=== PATIENT | female | born 1985 | race American Indian/Alaskan Native ===

== ENCOUNTER 2019-04-07 19:55 | Emergency (ER) | payer MEDICAID ==
--- NOTE | 2019-04-07 21:47 | Event Note ---
ED Screening Note ED Screening Note: pt states she hit her 4th toe on her right foot against the edge of a door she is walking with a limp PMHx HTN no allergies to meds pt is on depo never injured before This initial assessment/diagnostic orders/clinical plan/treatment(s) is/are subject to change based on patients health status, clinical progression and re- assessment by fellow clinical providers in the ED. Further treatment and workup at subsequent clinical providers discretion. Patient/guardian urged not to elope from the ED as their condition may be serious if not clinically assessed and managed. Initial orders include: XR right foot
--- NOTE | 2019-04-07 22:25 | XRay Report ---
RIGHT FOOT 3 VIEWS INDICATION: MAIN: right 4th toe injury; Hit right foot to wall. Nonlabored. Swollen. Hurts to bear weight. MAEW. No obvious deformities. . COMPARISON: No relevant prior imaging study available. FINDINGS: There is a minimally displaced vertically oriented intra-articular fracture at the base of the distal phalanx of the fourth toe seen best on the oblique view. There is no significant cortical offset at the articular surface. No additional fractures. IMPRESSION: 1. Fourth toe distal phalanx fracture as above. Signer Name: Sean Pete MD Signed: 04/07/2019 10:21 PM Workstation Name: [id number]
[2019-04-08] MEDS ORDERED: IBUPROFEN 600 MG TAB PO ONE (00:14)
[2019-04-08] MEDS ORDERED: ONDANSETRON 4 MG ODT TAB PO ONE (00:14)
[2019-04-08] MEDS ORDERED: oxyCODONE /ACETAMINOPHEN 5-325MG TAB PO ONE (00:14)
--- NOTE | 2019-04-08 00:45 | Emergency Department Report ---
ED Lower Extremity HPI - General Chief Complaint: Extremity Injury, Lower Stated Complaint: RT FOOT PAIN Time Seen by Provider: 04/07/19 21:45 Source: patient Mode of arrival: Ambulatory Limitations: No Limitations - History of Present Illness Initial Comments: Patient is a 34-year-old -[place] female with no past medical history who presents to the ED with complaint of acute onset persistent severe right foot pain and swelling after she accidentally kicked the wall of a house after slipping in the bathroom about 6 hours ago. Patient states that she is unable to bear weight on the right foot due to severe pain. Patient denies fall, head or neck injuries, back pain, nausea, vomiting, chest pain, shortness of breath, numbness and tingling or weakness of right leg or dizziness. MD Complaint: foot injury (right) -: Sudden, hour(s) (6) Injury: Foot: Right (pain, swelling), Toes: Right (pain, swelling) Type of Injury: blunt Place: home Severity: severe Severity scale (0 -10): 8 Improves With: nothing Worsens With: weight bearing, movement, palpation Context: direct blow (kicked a wall) Associated Symptoms: swelling, able to partially bear weight. denies: snap/pop sensation, numbness, tingling, unable to bear weight, ambulatory, other - Related Data Previous Rx's Medication Instructions Recorded Last Taken Type Acetaminophen/Codeine [Tylenol 1 tab PO Q6H PRN #12 tab 04/08/19 Unknown Rx /Codeine # 3 tab] Ibuprofen [Motrin] 800 mg PO Q8HR PRN #24 tablet 04/08/19 Unknown Rx Metaxalone [Skelaxin] 800 mg PO Q8H PRN #21 tablet 04/08/19 Unknown Rx Allergies Allergy/AdvReac Type Severity Reaction Status Date / Time No Known Allergies Allergy Verified 04/07/19 20:05 ED Review of Systems ROS: Stated complaint: RT FOOT PAIN Other details as noted in HPI Constitutional: denies: chills, fever Eyes: denies: eye pain, eye discharge, vision change ENT: denies: ear pain, throat pain Respiratory: denies: cough, shortness of breath, wheezing Cardiovascular: denies: chest pain, palpitations Endocrine: no symptoms reported Gastrointestinal: denies: abdominal pain, nausea, diarrhea Genitourinary: denies: urgency, dysuria, discharge Musculoskeletal: joint swelling (right foot), arthralgia (right foot and swelling). denies: back pain Skin: denies: rash, lesions Neurological: denies: headache, weakness, paresthesias Psychiatric: denies: anxiety, depression Hematological/Lymphatic: denies: easy bleeding, easy bruising ED Past Medical Hx - Past Medical History Previous Medical History?: No - Surgical History Past Surgical History?: No - Social History Smoking Status: Never Smoker Substance Use Type: None - Medications Home Medications: Home Medications Medication Instructions Recorded Confirmed Last Taken Type Acetaminophen/Codeine [Tylenol 1 tab PO Q6H PRN #12 tab 04/08/19 Unknown Rx /Codeine # 3 tab] Ibuprofen [Motrin] 800 mg PO Q8HR PRN #24 tablet 04/08/19 Unknown Rx Metaxalone [Skelaxin] 800 mg PO Q8H PRN #21 tablet 04/08/19 Unknown Rx ED Physical Exam - General Limitations: No Limitations General appearance: alert, in no apparent distress - Head Head exam: Present: atraumatic, normocephalic - Eye Eye exam: Present: normal appearance, PERRL, EOMI Pupils: Present: normal accommodation - ENT ENT exam: Present: normal exam, normal orophraynx, mucous membranes moist, TM's normal bilaterally, normal external ear exam - Neck Neck exam: Present: normal inspection, full ROM. Absent: tenderness - Respiratory Respiratory exam: Present: normal lung sounds bilaterally. Absent: respiratory distress, wheezes, chest wall tenderness, accessory muscle use, decreased breath sounds - Cardiovascular Cardiovascular Exam: Present: regular rate, normal rhythm, normal heart sounds. Absent: systolic murmur, diastolic murmur, rubs, gallop - GI/Abdominal GI/Abdominal exam: Present: soft, normal bowel sounds. Absent: tenderness, guarding, hyperactive bowel sounds - Extremities Exam Extremities exam: Present: normal inspection, tenderness (Palpable right foot tenderness with limited range of motion due to pain), normal capillary refill, joint swelling (Right foot swelling and tenderness). Absent: full ROM (Limited range of motion due to pain of right foot) - Back Exam Back exam: Present: normal inspection, full ROM. Absent: tenderness, CVA tenderness (R), CVA tenderness (L), muscle spasm, paraspinal tenderness, vertebral tenderness - Neurological Exam Neurological exam: Present: alert, oriented X3, CN II-XII intact, normal gait, reflexes normal - Psychiatric Psychiatric exam: Present: normal affect, normal mood - Skin Skin exam: Present: warm, dry, intact, normal color. Absent: rash ED Course Vital Signs 04/07/19 04/07/19 04/08/19 20:56 21:46 00:26 Temperature 99.5 F 99.5 F Pulse Rate 93 H 92 H Respiratory 18 18 20 Rate Blood Pressure 151/88 151/88 O2 Sat by Pulse 99 99 Oximetry 04/08/19 00:27 Temperature Pulse Rate Respiratory 18 Rate Blood Pressure O2 Sat by Pulse Oximetry ED Lower Extremity MDM - Radiology Data Radiology results: report reviewed, image reviewed Findings [facility] [address] [place] [address] XRay Report Signed Patient: ALFIE GLOVER MR#: [id number] : 1985 Acct:[id number] Age/Sex: 34 / F ADM Date: 04/07/19 Loc: ED Attending Dr: Ordering Physician: GRAHAM DORANTES Date of Service: 04/07/19 Procedure(s): XR foot 3+V RT Accession Number(s): [id number] cc: GRAHAM DORANTES Fluoro Time In Minutes: RIGHT FOOT 3 VIEWS INDICATION: MAIN: right 4th toe injury; Hit right foot to wall. Nonlabored. Swollen. Hurts to bear weight. MAEW. No obvious deformities. . COMPARISON: No relevant prior imaging study available. FINDINGS: There is a minimally displaced vertically oriented intra-articular fracture at the base of the distal phalanx of the fourth toe seen best on the oblique view. There is no significant cortical offset at the articular surface. No additional fractures. IMPRESSION: 1. Fourth toe distal phalanx fracture as above. Signer Name: Sean Pete MD Signed: 04/07/2019 10:21 PM Workstation Name: [id number] Transcribed By: DAVIN Dictated By: Sean Pete MD Electronically Authenticated By: Sean Pete MD Signed Date/Time: 04/07/192220 DD/ 19 TD/TT: - Medical Decision Making This is a 34-year-old female who presented to the ED with acute onset severe painful swollen right foot after she slipped and kicked the wall of her house when walking from the bathroom about 6 hours ago. In the ED, patient is alert and oriented x3 and is not in distress but appears to be in significant pain. Patient was treated for pain in the ED and the right foot x-ray shows a minimally displaced vertically oriented intra-articular fracture at the base of the distal phalanx of the fourth toe seen best on the oblique view. There is no significant cortical offset at the articular surface. No additional fractures. The patient right foot was splinted with a postop shoe and the fourth toe kieran taped. Patient was discharged home on pain medications and given a referral to the orthopedic surgeon on-call Dr. Quezada for follow-up. Patient was advised to contact Dr. Quezada's office first thing in the morning to schedule follow-up appointment. Patient was advised to return to the ED immediately if symptoms get worse. - Differential Diagnosis foot fracture; muscle strain; foot contusion; foot sprain Critical care attestation.: If time is entered above; I have spent that time in minutes in the direct care of this critically ill patient, excluding procedure time. ED Disposition Clinical Impression: Contusion of right foot including toes Qualifiers: Encounter type: initial encounter Qualified Code(s): S90.31XA - Contusion of right foot, initial encounter; S90.121A - Contusion of right lesser toe(s) with out damage to nail, initial encounter Nondisplaced fracture of lesser toe of left foot Qualifiers: Encounter type: initial encounter Fracture type: closed Phalanx: distal Qualified Code(s): S92.535A - Nondisplaced fracture of distal phalanx of left lesser toe(s), initial encounter for closed fracture Muscle strain of right foot Qualifiers: Encounter type: initial encounter Qualified Code(s): S96.911A - Strain of unspecified muscle and tendon at ankle and foot level, right foot, initial encounter Disposition: - TO HOME OR SELFCARE Is pt being admited?: No Does the pt Need Aspirin: No Condition: Stable Additional Instructions: The imaging report shows a nondisplaced distal right fourth toe fracture. 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 Quezada for further evaluation. Contact Dr. Quezada's office first thing in the morning to schedule a follow-up appointment. Return to the ED immediately if symptoms get worse. Prescriptions: Ibuprofen [Motrin] 800 mg PO Q8HR PRN #24 tablet PRN Reason: Pain , Severe (7-10) Metaxalone [Skelaxin] 800 mg PO Q8H PRN #21 tablet PRN Reason: Muscle Spasm Acetaminophen/Codeine [Tylenol /Codeine # 3 tab] 1 tab PO Q6H PRN #12 tab PRN Reason: Pain , Severe (7-10) Referrals: KELLY QUEZADA MD [Staff Physician] - 24 Hours Time of Disposition: 00:43 Print Language: MONGOLIAN
[2019-04-08 01:11] VITALS: BP 140/85
== END 2019-04-08 01:10 | disposition home or self-care (01) ==
LOC: ED 19:55
DX: S96.911A Strain of unspecified muscle and tendon at ankle and foot level, right foot, initial encounter (principal); S92.535A Nondisplaced fracture of distal phalanx of left lesser toe(s), initial encounter for closed fracture; Z79.899 Other long term (current) drug therapy; W18.09XA Striking against other object with subsequent fall, initial encounter; Y93.89 Activity, other specified; Y92.091 Bathroom in other non-institutional residence as the place of occurrence of the external cause; Y99.8 Other external cause status
CPT/HCPCS: Q0162

== ENCOUNTER 2020-05-24 20:18 | Emergency (ER) | payer MEDICAID ==
[2020-05-24] MEDS ORDERED: IBUPROFEN 600 MG TAB PO ONE (22:54)
[2020-05-24] MEDS ORDERED: ONDANSETRON 4 MG ODT TAB PO ONE ×2 (22:54→23:49)
[2020-05-24] MEDS ORDERED: HYDROcodone/ACETAMINOPHEN 7.5-325MG TAB PO ONE (22:54)
[2020-05-24 23:30] VITALS: BP 153/87
[2020-05-24] MEDS ORDERED: FAMOTIDINE 20 MG TAB PO ONE (23:49)
[2020-05-24] MEDS ORDERED: DICYCLOMINE 20 MG TAB PO ONE (23:49)
[2020-05-25] MEDS ORDERED: DICYCLOMINE 20 MG TAB PO ONE (02:30)
[2020-05-25] MEDS ORDERED: FAMOTIDINE 20 MG TAB PO ONE (02:30)
[2020-05-25] MEDS ORDERED: ONDANSETRON 4 MG ODT TAB PO ONE (03:00)
[2020-05-25 03:12] LABS: HCG Qualitative,Urine Negative (Negative)
--- NOTE | 2020-05-25 03:39 | Emergency Department Report ---
ED N/V/D HPI - General Chief complaint: Abdominal Pain Stated complaint: ABD PAIN Source: patient Mode of arrival: Ambulatory Limitations: No Limitations - History of Present Illness Initial comments: Patient is a 35-year-old -Marshallese female with a history of GERD and hypertension who presents to the ED with complaint of acute onset persistent intermittent nausea and vomiting with diffuse abdominal discomfort for the last 5 days, worse in the last 2 days. Patient states that she was initially evaluated by her primary care physician 2 days ago and was given some med ications to take but these have not helped. Patient states that the symptoms are been persistent especially in the last 2 days such that prior to arrival in the ED, she has had 2 take various [id number] medications with no relief. Patient states that no one else at home is at similar symptoms. Patient denies fever, chills, dizziness, syncope, dysuria, urinary frequency and urgency, fever, chills, vaginal bleeding, vaginal discharge or low back pain. MD complaint: nausea, vomiting, abdominal pain -: Sudden, days(s) (5) Description of Vomiting: food contents, watery Associated Abdominal Pain: Yes (diffuse) Location: diffuse Radiation: none Severity: mild Pain Scale: 1 Quality: dull Consistency: intermittent Improves with: none Worsens with: vomiting Context: possible food poisoning, other (GERD) Associated Symptoms: denies other symptoms, loss of appetite, malaise, nausea/vomiting, weakness. denies: myalgias, chest pain, cough, diaphoresis, fever/chills, headaches, rash, dysuria, shortness of breath, syncope - Related Data Previous Rx's Medication Instructions Recorded Last Taken Type Acetaminophen/Codeine [Tylenol 1 tab PO Q6H PRN #12 tab 04/08/19 Unknown Rx /Codeine # 3 tab] Ibuprofen [Motrin] 800 mg PO Q8HR PRN #24 tablet 04/08/19 Unknown Rx Metaxalone [Skelaxin] 800 mg PO Q8H PRN #21 tablet 04/08/19 Unknown Rx Dicyclomine [Bentyl] 20 mg PO Q6H PRN #24 tablet 05/25/20 Unknown Rx Famotidine [Pepcid] 20 mg PO BID #60 tablet 05/25/20 Unknown Rx Ondansetron [Zofran Odt] 4 mg PO Q6HR PRN #20 tab.rapdis 04/20/21 Unknown Rx Allergies Allergy/AdvReac Type Severity Reaction Status Date / Time No Known Allergies Allergy Verified 04/07/19 20:05 ED Review of Systems ROS: Stated complaint: ABD PAIN Other details as noted in HPI Constitutional: denies: chills, fever Eyes: denies: eye pain, eye discharge, vision change ENT: denies: ear pain, throat pain Respiratory: denies: cough, shortness of breath, wheezing Cardiovascular: denies: chest pain, palpitations Endocrine: no symptoms reported Gastrointestinal: abdominal pain, nausea, vomiting. denies: diarrhea Genitourinary: denies: urgency, dysuria, discharge Musculoskeletal: denies: back pain, joint swelling, arthralgia Skin: denies: rash, lesions Neurological: denies: headache, weakness, paresthesias Psychiatric: denies: anxiety, depression Hematological/Lymphatic: denies: easy bleeding, easy bruising ED Past Medical Hx - Past Medical History Previous Medical History?: Yes Hx Hypertension: Yes Hx GERD: Yes - Surgical History Additional Surgical History: c-sections x 3, ectopic - Social History Smoking Status: Never Smoker - Medications Home Medications: Home Medications Medication Instructions Recorded Confirmed Last Taken Type Acetaminophen/Codeine [Tylenol 1 tab PO Q6H PRN #12 tab 04/08/19 Unknown Rx /Codeine # 3 tab] Ibuprofen [Motrin] 800 mg PO Q8HR PRN #24 tablet 04/08/19 Unknown Rx Metaxalone [Skelaxin] 800 mg PO Q8H PRN #21 tablet 04/08/19 Unknown Rx Dicyclomine [Bentyl] 20 mg PO Q6H PRN #24 tablet 05/25/20 Unknown Rx Famotidine [Pepcid] 20 mg PO BID #60 tablet 05/25/20 Unknown Rx Ondansetron [Zofran Odt] 4 mg PO Q6HR PRN #20 tab.rapdis 05/25/20 Unknown Rx ED Physical Exam - General Limitations: No Limitations General appearance: alert, in no apparent distress - Head Head exam: Present: atraumatic, normocephalic, normal inspection - Eye Eye exam: Present: normal appearance, PERRL, EOMI Pupils: Present: normal accommodation - ENT ENT exam: Present: normal exam, normal orophraynx, mucous membranes moist, TM's normal bilaterally, normal external ear exam - Neck Neck exam: Present: normal inspection, full ROM - Respiratory Respiratory exam: Present: normal lung sounds bilaterally. Absent: respiratory distress, wheezes, rales, rhonchi, chest wall tenderness, accessory muscle use, decreased breath sounds, prolonged expiratory - Cardiovascular Cardiovascular Exam: Present: regular rate, normal rhythm, normal heart sounds. Absent: systolic murmur, diastolic murmur, rubs, gallop - GI/Abdominal GI/Abdominal exam: Present: soft, normal bowel sounds. Absent: tenderness, guarding, rebound, hyperactive bowel sounds, organomegaly - Extremities Exam Extremities exam: Present: normal inspection, full ROM, normal capillary refill - Back Exam Back exam: Present: normal inspection, full ROM. Absent: tenderness, CVA tenderness (R), CVA tenderness (L), muscle spasm, paraspinal tenderness - Neurological Exam Neurological exam: Present: alert, oriented X3, CN II-XII intact, normal gait, reflexes normal - Psychiatric Psychiatric exam: Present: normal affect, normal mood - Skin Skin exam: Present: warm, dry, intact, normal color. Absent: rash ED Course Vital Signs 05/24/20 23:25 Temperature 97.8 F Pulse Rate 77 Respiratory 18 Rate Blood Pressure 153/87 O2 Sat by Pulse 100 Oximetry ED Medical Decision Making - Medical Decision Making This is a 35-year-old -Marshallese female with a history of GERD and hypertension who presents to the ED with complaint of acute onset persistent intermittent nausea and vomiting with diffuse abdominal discomfort for the last 5 days, worse in the last 2 days. Patient states that she was initially evaluated by her primary care physician 2 days ago and was given some medications to take but these have not helped. Patient states that the symptoms are been persistent especially in the last 2 days such that prior to arrival in the ED, she has had 2 take various [id number]-[id number] medications with no relief. Patient states that no one else at home is at similar symptoms. In the ED, patient is alert and oriented x3 and is not in any distress. Lab test results were reviewed and are all nonactionable. Based on the patient's history and physical exam findings, patient was discharged home on medications and advised to follow-up with her primary care physician in 5 to 7 days for reevaluation or return to the ED immediately if symptoms get worse. - Differential Diagnosis GERD; gastroenteritis; UTI; gastritis; Critical care attestation.: If time is entered above; I have spent that time in minutes in the direct care of this critically ill patient, excluding procedure time. ED Disposition Clinical Impression: Nausea and vomiting in adult patient GERD (gastroesophageal reflux disease) Qualifiers: Esophagitis presence: esophagitis presence not specified Qualified Code(s): K21.9 - Gastro-esophageal reflux disease without esophagitis Disposition: TO HOME OR SELFCARE Is pt being admited?: No Does the pt Need Aspirin: No Condition: Stable Instructions: Nausea and Vomiting, Adult, [id number], Gastroesophageal Reflux Disease, Adult, [id number], Abdominal Pain (ED) Additional Instructions: Lab test results were reviewed and are all nonactionable. Therefore take medication with food, drink plenty of fluids and follow-up with your primary care physician in 5 to 7 days for reevaluation. Return to the ED immediately if symptoms get worse. Prescriptions: Dicyclomine [Bentyl] 20 mg PO Q6H PRN #24 tablet PRN Reason: ABDOMINAL PAIN Famotidine [Pepcid] 20 mg PO BID #60 tablet Ondansetron [Zofran Odt] 4 mg PO Q6HR PRN #20 tab.rapdis PRN Reason: Nausea And Vomiting Referrals: [facility] [Provider Group] - 3-5 Days Time of Disposition: 03:37 Print Language: MONTENEGRIN
[2020-05-25 03:47] LABS: Blood,Urine Negative (Negative); Color,Urine Yellow (Yellow); PH,Urine 5.5 (5.0-7.0)
[2020-05-25 03:48] LABS: Ictotest,Urine Negative (Negative)
== END 2020-05-25 04:00 | disposition home or self-care (01) ==
LOC: ED 20:18
DX: K21.9 Gastro-esophageal reflux disease without esophagitis (principal); R11.2 Nausea with vomiting, unspecified; I10 Essential (primary) hypertension; Z98.890 Other specified postprocedural states; Z79.1 Long term (current) use of non-steroidal anti-inflammatories (NSAID); Z79.899 Other long term (current) drug therapy
CPT/HCPCS: 81001; 81025; Q0162

== ENCOUNTER 2020-07-22 17:22 | Emergency (ER) | payer MEDICAID ==
[2020-07-22 17:33] VITALS: BP 149/93
[2020-07-22 18:51] LABS: Basophils # (Auto) 0.1 K/mm3 (0.0-0.1); Basophils % (Auto) 1.4 % (0.0-1.8); Eosinophils # (Auto) 0.5 K/mm3 (0.0-0.4); Hematocrit 34.8 % (30.3-42.9); Hemoglobin 11.7 gm/dl (10.1-14.3); Lymphocytes # (Auto) 2.1 K/mm3 (1.2-5.4); Lymphocytes % (Auto) 42.6 % (13.4-35.0); Mean Corpuscular HGB Conc 34 % (30-34); Mean Corpuscular Volume 92 fl (79-97); Monocytes # (Auto) 0.4 K/mm3 (0.0-0.8); Monocytes % (Auto) 7.3 % (0.0-7.3); Platelet Count 306 K/mm3 (140-440); Red Blood Count 3.77 M/mm3 (3.65-5.03); Red Cell Distribution Width 13.1 % (13.2-15.2)
--- NOTE | 2020-07-22 18:55 | Emergency Department Report ---
ED General Adult HPI - General Chief complaint: High BP Stated complaint: HEADACHE/PRESSURE IN EYES Source: patient Mode of arrival: Ambulatory Limitations: No Limitations - History of Present Illness Initial comments: Patient is a 35-year-old -German female with a history of GERD and hypertension and who takes labetalol 100 mg daily presents to the ED with acute onset persistent elevated blood pressure and headache for the last 2 weeks intermittently. Patient also complains of mild left-sided chest wall discomfort which she initially attributed to suspected complications from her chronic GERD. Patient states that she has been taking Tylenol for headache but that this has not helped. 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 Patient states that this medication has not helped control her blood pressure like amlodipine that she used to take. Patient denies dizziness, syncope, nausea, vomiting, shortness of breath, chest pain, abdominal pain, change in vision, palpitation, lightheadedness, hemoptysis or cough, neck pain or back pain. MD Complaint: headache, elevated BP, left-sided chest discomfort -: Sudden, week(s) (2) Location: head, chest Radiation: non-radiation Severity scale (0 -10): 1 Quality: aching, dull Consistency: intermittent Improves with: none Worsens with: none Associated Symptoms: denies other symptoms, chest pain (left-sided chest discomfort), headaches. denies: confusion, cough, diaphoresis, fever/chills, loss of appetite, nausea/vomiting, rash, seizure, shortness of breath, syncope, weakness Treatments Prior to Arrival: NSAID - Related Data Previous Rx's Medication Instructions Recorded Last Taken Type Acetaminophen/Codeine [Tylenol 1 tab PO Q6H PRN #12 tab 04/08/19 Unknown Rx /Codeine # 3 tab] Ibuprofen [Motrin] 800 mg PO Q8HR PRN #24 tablet 04/08/19 Unknown Rx Metaxalone [Skelaxin] 800 mg PO Q8H PRN #21 tablet 04/08/19 Unknown Rx Dicyclomine [Bentyl] 20 mg PO Q6H PRN #24 tablet 05/25/20 Unknown Rx Famotidine [Pepcid] 20 mg PO BID #60 tablet 05/25/20 Unknown Rx Ondansetron [Zofran Odt] 4 mg PO Q6HR PRN #20 tab.rapdis 05/25/20 Unknown Rx Butalb/Acetamin/Caff 50-325-40 1 - 2 tab PO Q6HR PRN #15 tab 07/22/20 Unknown Rx [Fioricet 50-325-40] Ibuprofen [Motrin] 600 mg PO Q8H PRN #30 tablet 07/22/20 Unknown Rx amLODIPine 10 mg PO DAILY #30 tab 07/22/20 Unknown Rx Allergies Allergy/AdvReac Type Severity Reaction Status Date / Time No Known Allergies Allergy Verified 07/22/20 17:28 ED Review of Systems ROS: Stated complaint: HEADACHE/PRESSURE IN EYES Other details as noted in HPI Constitutional: malaise, other (elevated BP). denies: chills, fever Eyes: denies: eye pain, eye discharge, vision change ENT: denies: ear pain, throat pain Respiratory: denies: cough, shortness of breath, wheezing Cardiovascular: chest pain (left-sided chest discomfort). denies: palpitations, dyspnea on exertion Endocrine: no symptoms reported Gastrointestinal: denies: abdominal pain, nausea, vomiting, diarrhea Genitourinary: denies: urgency, dysuria, discharge Musculoskeletal: denies: back pain, joint swelling, arthralgia Skin: denies: rash, lesions Neurological: headache. denies: weakness, paresthesias Psychiatric: denies: anxiety, depression Hematological/Lymphatic: denies: easy bleeding, easy bruising ED Past Medical Hx - Past Medical History Hx Hypertension: Yes Hx GERD: Yes - Surgical History Additional Surgical History: c-sections x 3, ectopic - Social History Smoking Status: Never Smoker Substance Use Type: None - Medications Home Medications: Home Medications Medication Instructions Recorded Confirmed Last Taken Type Acetaminophen/Codeine [Tylenol 1 tab PO Q6H PRN #12 tab 04/08/19 Unknown Rx /Codeine # 3 tab] Ibuprofen [Motrin] 800 mg PO Q8HR PRN #24 tablet 04/08/19 Unknown Rx Metaxalone [Skelaxin] 800 mg PO Q8H PRN #21 tablet 04/08/19 Unknown Rx Dicyclomine [Bentyl] 20 mg PO Q6H PRN #24 tablet 05/25/20 Unknown Rx Famotidine [Pepcid] 20 mg PO BID #60 tablet 05/25/20 Unknown Rx Ondansetron [Zofran Odt] 4 mg PO Q6HR PRN #20 tab.rapdis 05/25/20 Unknown Rx Butalb/Acetamin/Caff 50-325-40 1 - 2 tab PO Q6HR PRN #15 tab 07/22/20 Unknown Rx [Fioricet 50-325-40] Ibuprofen [Motrin] 600 mg PO Q8H PRN #30 tablet 07/22/20 Unknown Rx amLODIPine 10 mg PO DAILY #30 tab 07/22/20 Unknown Rx ED Physical Exam - General Limitations: No Limitations General appearance: alert, in no apparent distress - Head Head exam: Present: atraumatic, normocephalic, normal inspection - Eye Eye exam: Present: normal appearance, PERRL, EOMI Pupils: Present: normal accommodation - ENT ENT exam: Present: normal exam, normal orophraynx, mucous membranes moist, TM's normal bilaterally, normal external ear exam - Neck Neck exam: Present: normal inspection, full ROM - Respiratory Respiratory exam: Present: normal lung sounds bilaterally. Absent: respiratory distress, wheezes, rales, rhonchi, stridor, chest wall tenderness, accessory muscle use, decreased breath sounds, prolonged expiratory - Cardiovascular Cardiovascular Exam: Present: regular rate, normal rhythm. Absent: systolic murmur, diastolic murmur, rubs, gallop - GI/Abdominal GI/Abdominal exam: Present: soft, normal bowel sounds. Absent: distended, tenderness, guarding, rebound, hyperactive bowel sounds, hypoactive bowel sounds, organomegaly - Extremities Exam Extremities exam: Present: normal inspection, full ROM, normal capillary refill - Back Exam Back exam: Present: normal inspection, full ROM. Absent: tenderness, CVA tenderness (R), CVA tenderness (L), muscle spasm, paraspinal tenderness, vertebral tenderness - Neurological Exam Neurological exam: Present: alert, oriented X3, CN II-XII intact, normal gait, reflexes normal - Psychiatric Psychiatric exam: Present: normal affect, normal mood - Skin Skin exam: Present: warm, dry, intact, normal color. Absent: rash ED Course Vital Signs 07/22/20 17:30 Temperature 98.5 F Pulse Rate 70 Respiratory 20 Rate Blood Pressure 149/93 O2 Sat by Pulse 100 Oximetry ED Medical Decision Making - Lab Data Result diagrams: 07/22/20 18:41 07/22/20 18:41 - EKG Data EKG shows normal: sinus rhythm Rate: normal - EKG Data Interpretation: normal EKG - Radiology Data Radiology results: report reviewed, image reviewed [facility] [address] [place] [address] XRay Report Signed Patient: ALFIE GLOVER MR#: [id number] : 1985 Acct:[id number] Age/Sex: 35 / F ADM Date: 07/22/20 Loc: ED Attending Dr: Ordering Physician: GRAHAM CAPELLAN Date of Service: 07/22/20 Procedure(s): XR chest 1V ap Accession Number(s): [id number] cc: GRAHAM CAPELLAN Fluoro Time In Minutes: CHEST 1 VIEW 07/22/2020 6:00 PM INDICATION / CLINICAL INFORMATION: Chest pain. High blood pressure and headache on and off for several weeks. COMPARISON: None available. FINDINGS: SUPPORT DEVICES: None. HEART / MEDIASTINUM: The heart size and pulmonary vasculature are normal. The aorta is normal in caliber. LUNGS / PLEURA: No significant pulmonary or pleural abnormality. No pneumothorax. ADDITIONAL FINDINGS: No significant additional findings. IMPRESSION: No acute findings. Signer Name: oJhn Duron MD Signed: 07/22/2020 7:03 PM Workstation Name: [id number] Transcribed By: RT Dictated By: John Duron MD Electronically Authenticated By: John Duron MD Signed Date/Time: 07/22/201902 DD/ 01 TD/TT: - Medical Decision Making This is a 35-year-old -German female with a history of GERD and hypertension and who takes labetalol 100 mg daily presents to the ED with acute onset persistent elevated blood pressure and headache for the last 2 weeks intermittently. Patient also complains of mild left-sided chest wall discomfort which she initially attributed to suspected complications from her chronic GERD. Patient states that she has been taking Tylenol for headache but that this has not helped. 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 Patient states that this medication has not helped control her blood pressure like amlodipine that she used to take. In the ED, patient is alert and oriented x3 and is not in any distress. Lab test results were reviewed and are all nonactionable. Chest x-ray shows no acute cardiopulmonary abnormalities or pneu monitis. Patient was treated for pain in the ED and on reevaluation, patient's headache resolved medications. Patient's heart score is 1 and patient is negative per Wells criteria. Patient was discharged home on pain medications and a new prescription of amlodipine and was advised to follow-up with her primary care physician in 5 to 7 days for reevaluation. Patient was also advised to stop taking labetalol and referred to her previous medication amlodipine. Patient is advised return to the ED immediately if symptoms get worse. - Differential Diagnosis Tension headache; GERD; ACS; Pneumonia; Critical care attestation.: If time is entered above; I have spent that time in minutes in the direct care of this critically ill patient, excluding procedure time. ED Disposition Clinical Impression: Acute nonspecific chest pain with low risk of coronary artery disease, Uncontrolled hypertension, stage 1 Tension-type headache Qualifiers: Headache chronicity pattern: acute headache Intractability: not intractable Qualified Code(s): G44.209 - Tension-type headache, unspecified, not intractable Disposition: DC-01 TO HOME OR SELFCARE Is pt being admited?: No Does the pt Need Aspirin: No Condition: Stable Instructions: Tension Headache, Adult, [id number], Nonspecific Chest Pain, Adult, [id number], Hypertension, Adult, [id number], Chest Pain (ED), Hypertension (ED) Additional Instructions: All lab test results were reviewed and are all nonactionable. Chest x-ray showed no acute cardiopulmonary abnormalities or pneumonitis. Therefore take medication with food, drink plenty of fluids, follow-up with your primary care physician in 5 to 7 days for reevaluation. Return to the ED immediately if symptoms get worse. Prescriptions: amLODIPine 10 mg PO DAILY #30 tab Butalb/Acetamin/Caff 50-325-40 [Fioricet 50-325-40] 1 - 2 tab PO Q6HR PRN #15 tab PRN Reason: Headache Ibuprofen [Motrin] 600 mg PO Q8H PRN #30 tablet PRN Reason: Pain Referrals: OLEG GASPAR MD [Staff Physician] - 3-5 Days Time of Disposition: 18:55 Print Language: FAROESE
--- NOTE | 2020-07-22 19:07 | XRay Report ---
CHEST 1 VIEW 07/22/2020 6:00 PM INDICATION / CLINICAL INFORMATION: Chest pain. High blood pressure and headache on and off for severa l weeks. COMPARISON: None available. FINDINGS: SUPPORT DEVICES: None. HEART / MEDIASTINUM: The heart size and pulmonary vasculature are normal. The aorta is normal in kadei sail[place]. LUNGS / PLEURA: No significant pulmonary or pleural abnormality. No pneumothorax. ADDITIONAL FINDINGS: No significant additional findings. IMPRESSION: No acute findings. Signer Name: John Duron MD Signed: 07/22/2020 7:03 PM Workstation Name: [id number]
[2020-07-22 19:54] LABS: Alanine Aminotransferase 9 units/L (7-56); Albumin 4.7 g/dL (3.9-5); Blood Urea Nitrogen 12 mg/dL (7-17); Calcium 9.5 mg/dL (8.4-10.2); Hemolysis Index 5
[2020-07-22 19:55] LABS: BUN/Creatinine Ratio 20
[2020-07-22] MEDS ORDERED: amLODIPine 5 MG TAB PO ONE (20:25)
[2020-07-22] MEDS ORDERED: KETOROLAC 30 MG/1 ML INJ IM ONE (20:25)
[2020-07-22] MEDS ORDERED: FAMOTIDINE 20 MG TAB PO ONE (20:25)
[2020-07-22] MEDS ORDERED: BUTALB/ACETAMINOPHEN/CAFFEINE TAB PO ONE (20:25)
--- NOTE | 2020-07-23 19:42 | Electrocardiograph Report ---
[facility] Test Date: 2020-07-22 Test Time: 17:36:29 Pat Name: ALFIE GLOVER Department: Room: Gender: F Golf Caddy: DONALD TREADWELLB: 1985 Requested By: ZEE RIOJAS III Order Number: [id number] Reading MD: Wilman Fontanez Measurements Intervals [place] Rate: 64 P: 48 WI: 186 QRS: 48 QRSD: 89 T: 18 QT: 390 QTc: 403 Interpretive Statements Sinus rhythm No previous ECG available for comparison Electronically Signed On 07-23-2020 19:42:01 EDT by Wilman Fontanez
== END 2020-07-22 21:00 | disposition home or self-care (01) ==
LOC: ED 17:22
DX: G44.209 Tension-type headache, unspecified, not intractable (principal); R07.89 Other chest pain; I10 Essential (primary) hypertension; K21.9 Gastro-esophageal reflux disease without esophagitis; Z98.890 Other specified postprocedural states; Z79.899 Other long term (current) drug therapy
CPT/HCPCS: 36415; 71045; 80053; 84484; 85025; 93005

== ENCOUNTER 2020-07-24 03:00 | Emergency (ER) | payer MEDICAID ==
[2020-07-24] MEDS ORDERED: ACETAMINOPHEN 325 MG TAB ONE (05:06)
--- NOTE | 2020-07-24 05:45 | XRay Report ---
Right forearm 4 views INDICATION: Pain FINDINGS: Radius and ulna appear intact. No soft tissue abnormality is seen. Elbow appears normal. IMPRESSION: No acute findings. Signer Name: Sami Mcconnell MD Signed: 07/24/2020 5:40 AM Workstation Name: [id number]
[2020-07-24] MEDS ORDERED: HYDROcodone/ACETAMINOPHEN 7.5-325MG TAB PO ONE (06:16)
[2020-07-24 06:41] VITALS: BP 117/80
--- NOTE | 2020-07-24 07:30 | XRay Report ---
Right hand 2 views INDICATION: Tenderness FINDINGS: MCP joints and IP joints appear normal. No acute fracture is seen. No focal soft tissue abn ormality. IMPRESSION: No acute findings. Signer Name: Sami Mcconnell MD Signed: 07/24/2020 7:26 AM Workstation Name: [id number]
--- NOTE | 2020-07-24 07:50 | Emergency Department Report ---
ED General Adult HPI - General Chief complaint: Extremity Injury, Upper Stated complaint: RT HAND INJURY Time Seen by Provider: 07/24/20 07:36 Source: patient Mode of arrival: Ambulatory Limitations: No Limitations - History of Present Illness Initial comments: 35-year-old [id number] female patient presents to the emergency department with complaints of right hand pain starting yesterday. Patient states she was [place] a bowling [place] when she accidentally twisted her hand while attempting to grab the bowling ball. No history of prior injuries to the right hand. No medications prior to arrival. Denies neck pain, shoulder pain, elbow pain, wrist pain, numbness. Denies all other complaints at this time. Severity scale (0 -10): 7 - Related Data Previous Rx's Medication Instructions Recorded Last Taken Type Acetaminophen/Codeine [Tylenol 1 tab PO Q6H PRN #12 tab 04/08/19 Unknown Rx /Codeine # 3 tab] Ibuprofen [Motrin] 800 mg PO Q8HR PRN #24 tablet 04/08/19 Unknown Rx Metaxalone [Skelaxin] 800 mg PO Q8H PRN #21 tablet 04/08/19 Unknown Rx Dicyclomine [Bentyl] 20 mg PO Q6H PRN #24 tablet 05/25/20 Unknown Rx Famotidine [Pepcid] 20 mg PO BID #60 tablet 05/25/20 Unknown Rx Ondansetron [Zofran Odt] 4 mg PO Q6HR PRN #20 tab.rapdis 05/25/20 Unknown Rx Butalb/Acetamin/Caff 50-325-40 1 - 2 tab PO Q6HR PRN #15 tab 07/22/20 Unknown Rx [Fioricet 50-325-40] Ibuprofen [Motrin] 600 mg PO Q8H PRN #30 tablet 07/22/20 Unknown Rx amLODIPine 10 mg PO DAILY #30 tab 07/22/20 Unknown Rx Naproxen 500 mg PO BID #20 tablet 07/24/20 Unknown Rx Allergies Allergy/AdvReac Type Severity Reaction Status Date / Time No Known Allergies Allergy Verified 07/22/20 17:28 ED Review of Systems ROS: Stated complaint: RT HAND INJURY Other details as noted in HPI Other: CARDIOVASCULAR: Negative for chest pain. PULMONARY: Negative for dyspnea. GASTROINTESTINAL: Negative for abdominal pain. MUSCULOSKELETAL: Positive for hand pain. NEUROLOGICAL: Negative for headache. INTEGUMENTARY: Negative for ecchymosis. ED Past Medical Hx - Past Medical History Previous Medical History?: Yes Hx Hypertension: Yes Hx GERD: Yes - Surgical History Past Surgical History?: Yes Additional Surgical History: c-sections x 3, ectopic - Social History Smoking Status: Never Smoker Substance Use Type: None - Medications Home Medications: Home Medications Medication Instructions Recorded Confirmed Last Taken Type Acetaminophen/Codeine [Tylenol 1 tab PO Q6H PRN #12 tab 04/08/19 Unknown Rx /Codeine # 3 tab] Ibuprofen [Motrin] 800 mg PO Q8HR PRN #24 tablet 04/08/19 Unknown Rx Metaxalone [Skelaxin] 800 mg PO Q8H PRN #21 tablet 04/08/19 Unknown Rx Dicyclomine [Bentyl] 20 mg PO Q6H PRN #24 tablet 05/25/20 Unknown Rx Famotidine [Pepcid] 20 mg PO BID #60 tablet 05/25/20 Unknown Rx Ondansetron [Zofran Odt] 4 mg PO Q6HR PRN #20 tab.rapdis 05/25/20 Unknown Rx Butalb/Acetamin/Caff 50-325-40 1 - 2 tab PO Q6HR PRN #15 tab 07/22/20 Unknown Rx [Fioricet 50-325-40] Ibuprofen [Motrin] 600 mg PO Q8H PRN #30 tablet 07/22/20 Unknown Rx amLODIPine 10 mg PO DAILY #30 tab 07/22/20 Unknown Rx Naproxen 500 mg PO BID #20 tablet 07/24/20 Unknown Rx ED Physical Exam - General Limitations: No Limitations - Other Other exam information: General: Awake, appropriately interactive, no acute distress. Neck: Supple. Full range of motion intact. Cardiovascular: Normal peripheral perfusion. Pulmonary: No respiratory distress. Patient is speaking normally without use of accessory muscles. Skin: No apparent rashes or lesions. Neurological: No facial asymmetry. Speech is clear. Follows commands. Patient is alert and oriented. Musculoskeletal: Tenderness to palpation throughout the radial aspect of the right hand including the anatomical snuffbox with overlying erythema and minimal soft tissue swelling. Range of motion painful but intact. Strong radial pulse. No wrist tenderness. Distal neurovascular and motor/sensory function intact. Psych: Cooperative. Appropriate mood and affect. ED Course Vital Signs 07/24/20 07/24/20 03:12 06:40 Temperature 98.0 F Pulse Rate 94 H 78 Respiratory 18 18 Rate Blood Pressure 137/95 Blood Pressure 117/80 [Left] O2 Sat by Pulse 99 100 Oximetry ED Medical Decision Making - Medical Decision Making Differential diagnosis including but not limited to: sprain, strain, fracture, contusion, dislocation On reevaluation, patient is stable. Repeat neurovascular exam remains intact. X-rays ordered by global commodity manager within normal limits however patient will be placed in a splint as a precaution due to tenderness along the distribution of the anatomical snuffbox. Prescribed appropriate analgesics and referred to orthopedics for close outpatient follow-up. Patient expressed understanding and is agreeable to plan of care. RICE precautions discussed. Strict return precautions provided. Repeat exam is unremarkable and benign. History, exam, diagnostic testing, and current condition do not suggest worrisome pathology to warrant further testing, continued ED treatment, admission, or surgical evaluation at this point. Given the low probability of a significant medical illness, it would be more likely to result in harm than benefit to perform further testing at this stage. Discussed findings, presumptive diagnosis, need for follow-up and specific signs/symptoms that should prompt immediate return to the emergency department. Instructions were explained in detail to the patient in addition to giving written discharge information. Patient expressed understanding and was given the opportunity to ask questions, all of which were satisfactorily answered prior to discharge home. Critical care attestation.: If time is entered above; I have spent that time in minutes in the direct care of this critically ill patient, excluding procedure time. ED Disposition Clinical Impression: Injury of right hand Qualifiers: Encounter type: initial encounter Qualified Code(s): S69.91XA - Unspecified injury of right wrist, hand and finger(s), initial encounter Disposition: DC-01 TO HOME OR SELFCARE Is pt being admited?: No Does the pt Need Aspirin: No Condition: Stable Instructions: Scaphoid Fracture Additional Instructions: Take Tylenol every 4 hours as needed for pain. Take Naproxen with food twice daily as needed for pain. Wear splint as directed. Keep right hand elevated as often as possible to reduce swelling. Follow up with Dr. Quezada, orthopedics, this week. Call Sunday to schedule an appointment. Return to the emergency department immediately for new or worsening symptoms. Prescriptions: Naproxen 500 mg PO BID #20 tablet Referrals: KELLY QUEZADA MD [Staff Physician] - 3-5 Days Time of Disposition: 07:55
== END 2020-07-24 08:35 | disposition home or self-care (01) ==
LOC: ED 03:00
DX: S69.91XA Unspecified injury of right wrist, hand and finger(s), initial encounter (principal); I10 Essential (primary) hypertension; K21.9 Gastro-esophageal reflux disease without esophagitis; Z98.890 Other specified postprocedural states; Z79.1 Long term (current) use of non-steroidal anti-inflammatories (NSAID); Z79.899 Other long term (current) drug therapy; X50.1XXA Overexertion from prolonged static or awkward postures, initial encounter; Y93.89 Activity, other specified; Y92.89 Other specified places as the place of occurrence of the external cause; Y99.8 Other external cause status

== ENCOUNTER 2020-12-07 08:15 | Day surgery (SDC) | payer MEDICAID ==
[2020-12-01 10:17] LABS: Hematocrit 37.7 % (30.3-42.9); Hemoglobin 12.1 gm/dl (10.1-14.3); Mean Corpuscular HGB Conc 32 % (30-34); Mean Corpuscular Volume 90 fl (79-97); Platelet Count 331 K/mm3 (140-440); Red Blood Count 4.17 M/mm3 (3.65-5.03); Red Cell Distribution Width 14.6 % (13.2-15.2)
[2020-12-01 10:50] LABS: Blood Urea Nitrogen 15 mg/dL (7-17); Calcium 9.3 mg/dL (8.4-10.2); Hemolysis Index 5
[2020-12-01 11:07] LABS: BUN/Creatinine Ratio 30
[~2020-12-07 08:15] MED LIST: BUPIVACAINE/PF (0.25%) 2.5 MG/ML 30 ML VIAL INFILTRATI ONE; LIDOCAINE (1%) 10 MG/1 ML VIAL 20 ML MDV ONE
--- NOTE | 2020-12-07 08:38 | Anesthesia Day of Surgery ---
Anesthesia Day of Surgery - Day of Surgery Patient Examined: Yes Patient H&P Reviewed: Yes Patient is NPO: Yes
--- NOTE | 2020-12-07 08:39 | Anesthesia Consultation ---
Anesthesia Consult and Med Hx Date of service: 12/07/20 - Airway Anesthetic Teeth Evaluation: Chipped ROM Head & Neck: Adequate Mental/Hyoid Distance: Adequate Mallampati Class: Class II Intubation Access Assessment: Good - Pre-Operative Health Status ASA Pre-Surgery Classification: ASA2 Proposed Anesthetic Plan: General - Pulmonary Hx Smoking: No Hx Sleep Apnea: No (ISA PRE SCREEN LOW RISK.) - Cardiovascular System Hx Hypertension: Yes (SINCE AGE 16 YRS OLD) - Gastrointestinal Hx Gastroesophageal Reflux Disease: Yes (Hiatal hernia) - Hematic Hx Anemia: Yes (WITH PREG- NOT RECENT) Hx Sickle Cell Disease: No - Other Systems Hx Cancer: No Hx Obesity: No
[2020-12-07] MEDS ORDERED: CELECOXIB 200 MG CAP PO NR (09:00)
[2020-12-07] MEDS ORDERED: ACETAMINOPHEN 500 MG TAB PO SCH (09:00)
[2020-12-07] MEDS ORDERED: LACTATED RINGERS 1,000 ML IV SCH (09:00)
[2020-12-07] MEDS ORDERED: ONDANSETRON 4 MG/2 ML INJ IV PRN (09:00)
[2020-12-07] MEDS ORDERED: HYDROmorphone 1 MG/1 ML INJ IV PRN ×2 (09:00)
[2020-12-07] MEDS ORDERED: ceFAZolin/STERILE WATER 2 GM/20 ML SYRINGE IV NR (09:00)
[2020-12-07] MEDS ORDERED: MIDAZOLAM 2 MG/2 ML INJ IV NR (09:00)
[2020-12-07] MEDS ORDERED: KETOROLAC 30 MG/1 ML INJ ONE ×2 (09:38→11:17)
[2020-12-07] MEDS ORDERED: ONDANSETRON 4 MG/2 ML INJ ONE ×2 (09:38→10:44)
[2020-12-07] MEDS ORDERED: HYDROmorphone 1 MG/1 ML INJ ONE (09:38)
[2020-12-07] MEDS ORDERED: LIDOCAINE MPF (2%) 20 MG/1 ML VIAL 5 ML ONE (09:38)
[2020-12-07] MEDS ORDERED: propofoL 200 MG/20 ML VIAL IV ONE (09:39)
[2020-12-07] MEDS ORDERED: BUPIVACAINE/PF (0.25%) 2.5 MG/ML 30 ML VIAL INFILTRATI ONE (10:20)
[2020-12-07] MEDS ORDERED: LIDOCAINE (1%) 10 MG/1 ML VIAL 20 ML MDV INFILTRATI ONE (10:20)
[2020-12-07] MEDS ORDERED: SODIUM CHLORIDE 0.9% IRR 1,500 ML BOTTLE IR ONE (10:20)
[2020-12-07] MEDS ORDERED: NEOMY 3.5 MG/BACIT 400 UNITS/POLY B 5000 UNITS OINT 15 GM TP ONE ×2 (10:44→10:45)
[2020-12-07] MEDS ORDERED: dexAMETHasone 20 MG/5 ML VIAL ONE (10:44)
[2020-12-07] MEDS ORDERED: LACTATED RINGERS 1,000 ML ONE (11:26)
--- NOTE | 2020-12-07 11:29 | Short Stay Summary ---
Short Stay Documentation Date of service: 12/07/20 - History Principal diagnosis: bilateral axillary hidradenitis H&P: obtained from office - Allergies and Medications Current Medications: Allergies No Known Allergies Allergy (Verified 07/22/20 17:28) Home Medications Medication Instructions Recorded Confirmed Last Taken Type Omeprazole 40 mg PO DAILY 11/30/20 11/30/20 Unknown History amLODIPine 5 mg PO DAILY 11/30/20 11/30/20 Unknown History medroxyPROGESTERone ACETATE 150 mg IM Q3M 11/30/20 11/30/20 Unknown History [Depo-Provera (Contraception)] Active Medications Acetaminophen (Acetaminophen 500 Mg Tab) 1,000 mg PO PREOP LOGAN Stop: 12/07/20 21:00 Cefazolin Sodium (Cefazolin/Sterile Water 2 Gm/20 Ml Syringe) 2 gm IV PREOP NR Stop: 12/07/20 20:00 Celecoxib (Celecoxib 200 Mg Cap) 400 mg PO PREOP NR Stop: 12/07/20 18:00 Hydromorphone HCl (Hydromorphone 1 Mg/1 Ml Inj) 0.25 mg IV Q10MIN PRN PRN Reason: Pain, Moderate (4-6) Stop: 12/07/20 18:00 Hydromorphone HCl (Hydromorphone 1 Mg/1 Ml Inj) 0.5 mg IV Q10MIN PRN PRN Reason: Pain , Severe (7-10) Stop: 12/07/20 18:00 Lactated Ringer's (Lactated Ringers) 1,000 mls @ 100 mls/hr IV DIRECT LOGAN Midazolam HCl (Midazolam 2 Mg/2 Ml Inj) 2 mg IV PREOP NR Stop: 12/07/20 23:59 Ondansetron HCl (Ondansetron 4 Mg/2 Ml Inj) 4 mg IV ONCE PRN PRN Reason: Nausea And Vomiting Stop: 12/07/20 17:00 - Brief post op/procedure progress note Date of procedure: 12/07/20 Pre-op diagnosis: bilateral axillary hidradenitis Post-op diagnosis: same Procedure: Excision of bilateral axillary hidradenitis Anesthesia: GETA, local Findings: Chronic scar tissue present along visible areas of hidradenitis of bilateral axilla. Surgeon: ELIZ SEAMAN Estimated blood loss: 50-100ml Pathology: list (R axillary hidradenitis, L axillary hidradenitis) Specimen disposition: to lab Condition: stable - Hospital course Hospital course: Pt observed in PACU and discharged to home in stable condition when criteria met - Disposition Condition at discharge: Good Disposition: 01 HOME / SELF CARE / HOMELESS Short Stay Discharge Plan Activity: no restrictions Diet: regular Wound: per your surgeon's advice Additional Instructions: please see printed discharge instructions Follow up with: PRIMARY CARE, [Primary Care Provider] - 7 Days ELIZ SEAMAN DO [Staff Physician] - 14 Days Prescriptions: HYDROcodone/APAP 5-325 [[place] 5/325] 1 each PO Q6HR PRN #20 tablet PRN Reason: Pain , Severe (7-10)
--- NOTE | 2020-12-07 17:14 | Post Anesthesia Evaluation ---
- Post Anesthesia Evaluation Patient Participated: Yes Airway Patent: Yes Stable Respiratory Function: Yes Nausea/Vomiting: No Temp > 96.8F: Yes Pain Manageable: Yes Adequeate Hydration: Yes Anesthesia Complications: No Block Receding Appropriately: Not Applicable Patient on Ventilator: No
[2020-12-07 17:57] VITALS: BP 138/86
--- NOTE | 2020-12-13 08:33 | Operative Report ---
Operative Report Operative Report: Date of procedure: 12/07/20 11:25 Pre-op diagnosis: bilateral axillary hidradenitis Post-op diagnosis: same Procedure: Excision of bilateral axillary hidradenitis Anesthesia: GETA, local Findings: Chronic scar tissue present along visible areas of hidradenitis of bilateral axilla. Surgeon: ELIZ SEAMAN Estimated blood loss: 50-100ml Pathology: list (R axillary hidradenitis, L axillary hidradenitis) Specimen disposition: to lab Condition: stable Hospital course: Pt observed in PACU and discharged to home in stable condition when criteria met HPI and indication: Patient is a 35-year-old female with a longstanding history of hidradenitis specifically affecting the axilla. The patient has tried conservative management and has been seen in the surgery clinic for flareups. Nonsurgical and surgical treatment options were discussed with the patient at length. Due to pain in the area of chronic scarring, the patient elected to have excision of bilateral axillary hidradenitis. All risk, benefits, alternatives of surgery were discussed and questions answered. Consent obtained. The possibility of having open wounds was discussed with the patient at length. Procedure in detail: The patient was identified in the preoperative area taken back to the operating room and placed on the operating room table in supine position. After anesthesia was induced both arms were abducted and the axilla were prepped and draped in usual sterile fashion. Timeout was performed. First I started on the right side. Local anesthetic was infiltrated into the skin at the intended incision site. The incision was drawn out with a marker. The skin was incised with a 10 blade and dissection carried down through the skin and subcutaneous tissue using electrocautery until normal subcutaneous tissue was encountered. All visible areas of chronic hidradenitis were excised using a combination of blunt dissection with a hemostat and electrocautery. Great care was taken not to violate the axillary fascia. Once all the tissue was excised this was passed off the table as the right axilla hidradenitis specimen. The wound was irrigated and hemostasis very carefully ensured. The skin was approximated using interrupted 3-0 Prolene stitches. The skin approximated without any tension. The skin was cleansed and a dry 4 x 4 gauze dressing and cover site was applied. I then turned my attention to the left side. The excision was performed in the same fashion as the right side. There was one small area with 2 cc of purulent drainage. All chronic scar tissue and areas of visible hidradenitis were excised. This was passed off the table as the left axillary hidradenitis specimen. The wound was irrigated and hemostasis was very carefully ensured. The skin was approximated using interrupted 3-0 Prolene stitches without tension. The skin was cleansed and a dry 4 x 4 gauze dressing and cover site was applied At the end of the case, all sponge, instrument, sharp counts were correct x2. The patient was awoken from anesthesia and taken to PACU in stable condition.
== END 2020-12-07 13:15 | disposition home or self-care (01) ==
LOC: OR 08:15
PROVIDERS: ATTEND Surgery
DX: L73.2 Hidradenitis suppurativa (principal); I10 Essential (primary) hypertension; K21.9 Gastro-esophageal reflux disease without esophagitis; D64.9 Anemia, unspecified; E78.00 Pure hypercholesterolemia, unspecified; F41.9 Anxiety disorder, unspecified; F32.9 Major depressive disorder, single episode, unspecified; Z79.899 Other long term (current) drug therapy; Z98.890 Other specified postprocedural states; Z20.822 Contact with and (suspected) exposure to COVID-19
CPT/HCPCS: 11450; 36415; 80048; 84703; 85027; 88304; A6250; J0690; J1100; J1170; J1885; J2250; J2405; J2704; J7120; U0003

== ENCOUNTER 2021-01-03 10:09 | Outpatient (CLI) | payer MEDICAID ==
[2021-01-03] MEDS ORDERED: LIDOCAINE (4%) 40 MG/ML TOPICAL SOLN 50 ML BOTTLE TP ONE (10:22)
[2021-01-03] MEDS ORDERED: SILVER NITRATE APPLICATOR 1 EA TP ONE (10:57)
== END 2021-01-03 10:10 | disposition home or self-care (01) ==
LOC: WOUND 10:09
PROVIDERS: ATTEND Surgery
DX: L73.2 Hidradenitis suppurativa (principal); I10 Essential (primary) hypertension; Z90.710 Acquired absence of both cervix and uterus
CPT/HCPCS: 17250; G0463; 99214

== ENCOUNTER 2021-01-17 11:45 | Outpatient (CLI) | payer MEDICAID ==
[2021-01-17] MEDS ORDERED: LIDOCAINE (4%) 40 MG/ML TOPICAL SOLN 50 ML BOTTLE TP ONE (12:54)
[2021-01-17] MEDS ORDERED: SILVER NITRATE APPLICATOR 1 EA TP ONE (14:28)
== END 2021-01-17 11:46 | disposition home or self-care (01) ==
LOC: WOUND 11:45
PROVIDERS: ATTEND Surgery
DX: L73.2 Hidradenitis suppurativa (principal); I10 Essential (primary) hypertension; Z90.710 Acquired absence of both cervix and uterus
CPT/HCPCS: 17250; G0463; 99213